=== PATIENT | female | born 1975 | race Native Hawaiian/Other Pacific Islander ===

== ENCOUNTER 2019-04-11 14:07 | Outpatient (CLI) | payer OTHER | END 2019-04-11 14:10 | disposition short-term general hospital (02) | LOC: AMB 14:07 | DX: M79.622 Pain in left upper arm (principal); V89.2XXA Person injured in unspecified motor-vehicle accident, traffic, initial encounter; Y92.413 State road as the place of occurrence of the external cause | CPT/HCPCS: A0425; A0427 ==

== ENCOUNTER 2019-04-11 14:11 | Emergency (ER) | payer OTHER ==
[~2019-04-11] VITALS: Ht 162.6 cm; Wt 86.2 kg
[2019-04-11 16:02] VITALS: BP 130/79; TEMP 98.6
== END 2019-04-11 16:02 | disposition home or self-care (01) ==
LOC: ED 14:16
DX: S43.402A Unspecified sprain of left shoulder joint, initial encounter (principal); S40.012A Contusion of left shoulder, initial encounter; V89.2XXA Person injured in unspecified motor-vehicle accident, traffic, initial encounter
CPT/HCPCS: 96374; 99284; J1885